=== PATIENT | female | born 1975 | race Caucasian/White ===

== ENCOUNTER 2017-03-19 05:06 | Inpatient (IN) | payer MEDICAID ==
[2017-03-19] MEDS: LACTATED RINGERS 1,000 ML IV SCH ×3 (05:50→08:36)
[2017-03-19] MEDS ORDERED: LACTATED RINGERS 1,000 ML ONE (05:59)
[2017-03-19 06:47] LABS: Hematocrit 30.9 % (30.3-42.9); Mean Corpuscular HGB Conc 32 % (30-34); Mean Corpuscular Volume 71 fl (79-97); Platelet Count 165 K/mm3 (140-440); Red Blood Count 4.36 M/mm3 (3.65-5.03); Red Cell Distribution Width 16.3 % (13.2-15.2); White Blood Count 7.4 K/mm3 (4.5-11.0)
[2017-03-19 06:50] LABS: Mean Corpuscular Hemoglobin 23 pg (28-32)
--- NOTE | 2017-03-19 07:27 | Anesthesia Consultation ---
Anesthesia Consult and Med Hx Date of service: 03/19/17 - Airway Anesthetic Teeth Evaluation: Good ROM Head & Neck: Adequate Mental/Hyoid Distance: Adequate Mallampati Class: Class II Intubation Access Assessment: Probably Good - Pulmonary Exam CTA: Yes - Cardiac Exam Cardiac Exam: RRR - Pre-Operative Health Status ASA Pre-Surgery Classification: ASA3 Proposed Anesthetic Plan: Epidural, Spinal - Pulmonary Hx Smoking: No Hx Asthma: No Hx Respiratory Symptoms: No SOB: No COPD: No Hx Pneumonia: No Hx Sleep Apnea: No - Cardiovascular System Hx Hypertension: No Hx Coronary Artery Disease: No Hx Heart Attack/AMI: No Hx Angina: No Hx Percutaneous Transluminal Coronary Angioplasty (PTCA): No Hx Cardia Arrhythmia: No Hx Pacemaker: No Hx Internal Defibrillator: No Hx Valvular Heart Disease: No Hx Heart Murmur: No Hx Peripheral Vascular Disease: No - Central Nervous System Hx Neuromuscular Disorder: No Hx Seizures: No CVA: No Hx Back Pain: No Hx Psychiatric Problems: No - Gastrointestinal Hx Ulcer: No Hx Gastroesophageal Reflux Disease: No - Endocrine Hx Renal Disease: No Hx End Stage Renal Disease: No Hx Liver Disease: No Hx Insulin Dependent Diabetes: Yes Hx Thyroid Disease: No Hx Hypothyroidism: No Hx Hyperthyroidism: No - Hematic Hx Anemia: No Hx Sickle Cell Disease: No - Other Systems Hx Alcohol Use: No Hx Substance Use: No Hx Cancer: No Hx Obesity: Yes - Additional Comments Anesthesia Medical History Comments: +IUP
[2017-03-19] MEDS ORDERED: D50W (25GM) IV ONE (07:30)
--- NOTE | 2017-03-19 07:31 | Anesthesia Day of Surgery ---
Anesthesia Day of Surgery - Day of Surgery Patient Examined: Yes Patient H&P Reviewed: Yes Patient is NPO: Yes
--- NOTE | 2017-03-19 07:36 | History and Physical Report ---
History of Present Illness Date of examination: 03/19/17 Date of admission: 03/19/17 05:06 Chief complaint: Scheduled c/s and salpingectomy History of present illness: This is a 41yo at 40 weks here for scheduled repeat c/s and salpingectomy. her course consist of transfer of care from another office at 36 weeks Type 2 diabetic AMA previous c/s x 3 labs O+ antibody neg H/H pap normal rubella IMM RPR neg HIV neg plt 240 chlam neg galo neg GBS neg Past History Past Medical History: diabetes (Diabetes type 2 ) Past Surgical History: section (csec 3) Family/Genetic History: diabetes, heart disease Social history: . denies: smoking, alcohol abuse, prescription drug abuse, IV drug use - Obstetrical History Expected Date of Delivery: 03/19/17 Actual Gestation: 40 Week(s) 0 Day(s) : 6 Para: 3 Hx # Term Pregnancies: 3 Number of Pregnancies: 0 Spontaneous Abortions: 0 Induced : 2 Number of Living Children: 3 Medications and Allergies Allergies Allergy/AdvReac Type Severity Reaction Status Date / Time No Known Allergies Allergy Verified 11/16/13 13:35 Home Medications Medication Instructions Recorded Confirmed Last Taken Type Insulin NPH, Human [NovoLIN N] 30 unit SUB-Q QAM 03/19/17 03/19/17 03/18/17 History Insulin NPH, Human [NovoLIN N] 30 unit SUB-Q QPM 03/19/17 03/19/17 03/18/17 History Insulin Regular, Human [HumuLIN R] 28 units SUB-Q DAILY 03/19/17 03/19/17 History Insulin Regular, Human [HumuLIN R] 30 units SUB-Q QAM 03/19/17 03/19/17 History Active Meds: Active Medications Lactated Ringer's (Lactated Ringers) 1,000 mls @ 125 mls/hr IV DIRECT PHUONG Last Admin: 03/19/17 06:46 Dose: 999 mls/hr Review of Systems All systems: negative - Vital Signs Vital signs: Vital Signs Pulse Pulse Ox 75 97 03/19/17 06:10 03/19/17 06:10 Temp Pulse Resp BP Pulse Ox 98.0 F 80 18 111/66 98 03/19/17 06:24 05/30/17 07:13 03/19/17 06:24 03/19/17 06:29 03/19/17 07:13 - Physical Exam Breasts: Positive: deferred Cardiovascular: Regular rate, Normal S1 Lungs: Positive: Clear to auscultation, Normal air movement Abdomen: Positive: normal appearance, soft, normal bowel sounds. Negative: distention, tenderness, guarding Genitourinary (Female): Positive: normal external genitalia, normal perenium Vulva: both: normal Vagina: Positive: normal moisture Uterus: Positive: normal size, normal contour Anus/Rectum: Positive: normal perianal skin Extremities: Positive: normal Deep Tendon Reflex Grade: Normal +2 - Obstetrical FHR: category 1 Uterine Contraction Monitor Mode: External Cervical Dilatation: 0 Cervical Effacement Percentage: 0 Uterine Contraction Pattern: Irregular Uterine Tone Measurement Phase: Resting Results Result Diagrams: 03/19/17 05:40 Abnormal lab results 03/19/17 03/19/17 Range/Units 05:40 06:52 Hgb 10.0 L (10.1-14.3) gm/dl MCV 71 L (79-97) fl MCH 23 L (28-32) pg RDW 16.3 H (13.2-15.2) % POC Glucose 59 L (70-105) All other labs normal. Assessment and Plan A/P scheduled repeat c/s repeat ivf insulin by protocol d/w patient r/b/a of surgery which include bleeding infection damage to pelvic and non pelvic organs risk of hysterectomy and patient agrees with plan
[2017-03-19] MEDS ORDERED: NARCAN 0.4 MG/1 ML IV PRN ×3 (08:00→11:57)
[2017-03-19] MEDS ORDERED: PITOCin/NS 20 UNIT/1000ML DRIP 20 UNITS/1,000 ML BAG IV SCH ×2 (08:00→12:00)
[2017-03-19] MEDS ORDERED: REGLAN IV NR (08:00)
[2017-03-19] MEDS ORDERED: BICITRA PO NR (08:00)
[2017-03-19] MEDS ORDERED: ANCEF/STERILE WATER 2 GM/20 ML 2 GM/20 ML SYRINGE IV NR (08:00)
[2017-03-19] MEDS ORDERED: PEPCID IV NR (08:00)
[2017-03-19] MEDS ORDERED: LACTATED RINGERS 1,000 ML IV SCH (08:00)
[2017-03-19] MEDS ORDERED: ZOFRAN IV PRN ×2 (08:00→11:57)
[2017-03-19] MEDS ORDERED: BENADRYL IV PRN (08:00)
[2017-03-19] MEDS ORDERED: SODIUM CHLORIDE FLUSH SYRINGE 10 ML IV PRN (08:00)
[2017-03-19] MEDS ORDERED: fentaNYL-BUPIV 2 MCG/ML-0.125% 100 ML EPIDURAL SCH (08:00)
[2017-03-19] MEDS ORDERED: MORPHINE IV PRN ×4 (08:00→11:57)
[2017-03-19] MEDS ORDERED: MORPHINE ONE (08:47)
[2017-03-19] MEDS ORDERED: WATER FOR IRRIG STERILE IR ONE (09:00)
[2017-03-19] MEDS ORDERED: NACL 0.9% IR ONE (09:00)
[2017-03-19] MEDS ORDERED: ANCEF/STERILE WATER 2 GM/20 ML IV ONE (09:02)
[2017-03-19] MEDS ORDERED: ePHEDrine SULFATE ONE (09:05)
[2017-03-19] MEDS ORDERED: ZOFRAN ONE (09:52)
[2017-03-19] MEDS ORDERED: NACL 0.9% 500 ML 500 ML IV NR (10:30)
[2017-03-19] MEDS ORDERED: D50W (25GM) IV PRN (10:30)
[2017-03-19] MEDS ORDERED: DILAUDID ONE (10:40)
[2017-03-19] MEDS ORDERED: NACL 0.9% 1000 ML 1,000 ML ONE (10:43)
[2017-03-19] MEDS ORDERED: SUBLIMAZE ONE (10:47)
--- NOTE | 2017-03-19 11:44 | Procedure Note ---
OB Delivery Note - Delivery Date of Delivery: 03/19/17 Surgeon: YANET GONZALEZ Awake Overnight Monitor: MINGO JUNIOR Estimated blood loss: other (1300) - Section Preop diagnosis: repeat Postop diagnosis: other (dense adhesions) section procedure: repeat low transverse, other (lysisi of adhesions) Disposition: PACU Complications: transfusion Narrative: see op report - A at 1 minute: 8 at 5 minutes: 9 Gender: Male (weight 8 pounds 4 oz)
[2017-03-19] MEDS ORDERED: SENOKOT PO PRN (11:57)
[2017-03-19] MEDS ORDERED: MYLICON PO PRN (11:57)
[2017-03-19] MEDS ORDERED: PHENERGAN PR PRN (11:57)
[2017-03-19] MEDS ORDERED: MILK OF MAGNESIA PO PRN (11:57)
[2017-03-19] MEDS ORDERED: LANSINOH TP PRN (11:57)
[2017-03-19] MEDS ORDERED: TUCKS PAD TP PRN (11:57)
[2017-03-19] MEDS ORDERED: TYLENOL PO PRN (11:57)
[2017-03-19] MEDS ORDERED: ANUCORT-HC PR PRN (11:57)
[2017-03-19] MEDS ORDERED: TORADOL IV PRN ×2 (11:57)
--- NOTE | 2017-03-19 11:57 | Operative Report ---
Operative Report Operative Report: DATE OF PROCEDURE:03/19/17 PRE-PROCEDURE DIAGNOSIS: A 41-year-old 6, para 3023 with history of previous section here for repeat x 4 POST-PROCEDURE DIAGNOSIS: A 41 -year-old 6, para 3023 with history of previous section, dense adhesions PROCEDURE PERFORMED: section and lysis of adhesions SURGEON: Denisse Burks MD Practicing Urologist: Shadia Dorado ANESTHESIA: Spinal ESTIMATED BLOOD LOSS: 1300cc FINDINGS: Female born weighing 8 pounds 2 oz with Apgars of 8 and 9. DESCRIPTION OF PROCEDURE: The patient was taken to the operating room and given spinal anesthesia, and anesthesia was found to be adequate. The patient was prepped and draped in the usual sterile fashion. An incision was made over the previous scar . A Bovie was used to transect the subcutaneous tissue to the fascia, which was dissected laterally with curved Turner scissors. The Hari clamps were used to grasp the superior and inferior portions of the fascial incisions and subsequently dissected off with a Bovie and bluntly. The rectus abdominal muscles were divided in the midline. Multiple adhesions were palpated and transected from anterior uterus. The Anthony O retractor was placed in the incision. The vesicouterine peritoneum was identified, transected, creating the bladder flap. A scalpel was used to make a transverse incision in the low uterine segment bleeding commneced from anterior placenta and i was able to rapidly proceed grab baby head. The head was delivered atraumatically. Mouth and nares were suctioned at the incision. The posterior shoulder was delivered followed by the anterior shoulder and entire body. The cord was clamped twice and cut in between. The was handed off to the awaiting validation manager. The placental delivery was spontaneously intact 3-vessel cord.but very ragged. Twenty units of Pitocin in 1 liter of LR was given after placental delivery. The hysterotomy was repaired with 0 vicryl in a running locked fashion. Hemostasis was assured. multiple stiches of figure 8 for defect of denuded anterior uterus. I placed tessel and surgicel for excellent hemostasis and pressure. The pelvis was copiously irrigated with warm normal saline. Interceed was placed on the hysterotomy repair. The rectus abdominal muscles were evaluated and surgicell placed. The fascia was reapproximated with 0 Vicryl in a running fashion. The skin was closed with imani. The patient tolerated the procedure and was taken to the recovery room in stable condition.
[2017-03-19] MEDS ORDERED: FEOSOL PO SCH (12:00)
[2017-03-19] MEDS ORDERED: SODIUM CHLORIDE FLUSH SYRINGE 10 ML IV NR (12:00)
[2017-03-19] MEDS ORDERED: TORADOL IV SCH (12:00)
[2017-03-19] MEDS ORDERED: D5/0.45NS 1,000 ML IV SCH (13:30)
[2017-03-19] MEDS: NORCO 5/325 PO PRN (21:47)
[2017-03-20 00:02] LABS: Basophils % (Auto) 0.2 % (0.0-1.8); Eosinophils % (Auto) 0.3 % (0.0-4.3); Hematocrit 30.4 % (30.3-42.9); Hemoglobin 9.9 gm/dl (10.1-14.3); Mean Corpuscular HGB Conc 33 % (30-34); Mean Corpuscular Volume 75 fl (79-97); Platelet Count 136 K/mm3 (140-440); Red Blood Count 4.03 M/mm3 (3.65-5.03); Red Cell Distribution Width 19.6 % (13.2-15.2); White Blood Count 8.8 K/mm3 (4.5-11.0)
[2017-03-20 00:10] LABS: Mean Corpuscular Hemoglobin 25 pg (28-32)
[2017-03-20] MEDS: NORCO 5/325 PO PRN ×2 (04:55→21:08)
[2017-03-20] MEDS ORDERED: BOOSTRIX IM ONE (06:00)
[2017-03-20] MEDS ORDERED: M-M-R II VACCINE SUB-Q ONE (06:00)
[2017-03-20 08:23] LABS: Hematocrit 33.5 % (30.3-42.9); Hemoglobin 10.7 gm/dl (10.1-14.3)
--- NOTE | 2017-03-20 08:26 | Progress Note ---
Assessment and Plan O: VSS AF PP H/H: 9.9/30.4 A: Stable POD #1 Anemia P Iron Binder Routine PP orders Subjective - Subjective Date of service: 03/20/17 Patient reports: appetite normal, voiding normally, pain well controlled, flatus , ambulating normally : doing well Objective - Vital Signs Latest vital signs: Vital Signs Temp Pulse Pulse Resp BP BP Pulse Ox 03/20/17 08:08 98.4 F 72 18 96/60 03/20/17 04:55 18 03/20/17 04:50 98.4 F 85 18 115/69 03/20/17 00:48 98.5 F 81 20 106/60 03/19/17 21:47 16 03/19/17 21:35 98.6 F 82 16 103/57 03/19/17 18:05 98.7 F 74 20 94/55 03/19/17 17:45 98.6 F 76 20 95/55 03/19/17 17:15 98.7 F 65 20 96/53 03/19/17 16:45 98.6 F 73 20 94/46 03/19/17 16:15 98.7 F 73 20 102/57 03/19/17 15:55 98.7 F 78 20 92/48 03/19/17 15:25 20 03/19/17 14:05 98.1 F 76 18 105/80 03/19/17 13:30 97.7 F 92 H 13 104/65 95 03/19/17 13:00 97.9 F 85 15 116/48 97 03/19/17 12:45 97.9 F 75 11 L 108/60 97 03/19/17 12:30 97.9 F 76 12 96/57 98 03/19/17 12:15 97.7 F 74 10 L 100/55 97 Intake and Output 03/19/17 03/20/17 03/20/17 22:59 06:59 14:59 Intake Total 500 360 Output Total 225 780 Balance 275 -420 Intake: Oral 120 Intake, Free Water 240 Blood Product 500 Leukoreduced Red Blood 250 Cells Unit [id number] Leukoreduced Red Blood 250 Cells Unit [id number] Output: Urine 225 780 Indwelling Catheter 780 Other: Total, Intake Amount 120 Total, Output Amount 400 Voiding Method Indwelling Catheter Indwelling Catheter # Voids Void 1 Weight 0 g - Exam Breasts: Present: deferred Lungs: Present: Normal air movement Abdomen: Present: normal appearance, soft. Absent: distention Vulva: both: normal Uterus: Present: normal, firm, fundal height below umbilicus. Absent: bogginess Extremities: Present: normal. Absent: edema - Labs Labs: Abnormal lab results 03/19/17 03/19/17 Range/Units 05:40 23:14 Hgb 9.9 L (10.1-14.3) gm/dl MCV 75 L D (79-97) fl MCH 25 L (28-32) pg RDW 19.6 H (13.2-15.2) % Plt Count 136 L (140-440) K/mm3 Lymph % (Auto) 10.5 L (13.4-35.0) % Lymph # 0.9 L (1.2-5.4) K/mm3 Seg Neutrophils % 84.7 H (40.0-70.0) % Crossmatch See Detail
[2017-03-20] MEDS: FEOSOL PO SCH ×2 (09:59→21:08)
--- NOTE | 2017-03-20 15:09 | Progress Note ---
Subjective Date of service: 03/20/17 Interval history: 1st POD after Patient is in the room, comfortable. Pain is mostly controlled with pain meds. Ambulated well. No residual neurological deficit. No pruritus. No anesthesia complications Objective - Constitutional Vitals: Vital Signs - 12hr 03/20/17 03/20/17 03/20/17 04:50 04:55 08:08 Temperature 98.4 F 98.4 F Pulse Rate [ 85 72 Right Radial] Respiratory 18 18 18 Rate Blood Pressure 115/69 96/60 [Right Arm] 03/20/17 13:16 Temperature 97.9 F Pulse Rate [ 85 Right Radial] Respiratory 18 Rate Blood Pressure 100/53 [Right Arm] - Labs CBC & Chem 7: 03/20/17 06:55 Labs: Abnormal lab results 03/19/17 03/19/17 Range/Units 05:40 23:14 Hgb 9.9 L (10.1-14.3) gm/dl MCV 75 L D (79-97) fl MCH 25 L (28-32) pg RDW 19.6 H (13.2-15.2) % Plt Count 136 L (140-440) K/mm3 Lymph % (Auto) 10.5 L (13.4-35.0) % Lymph # 0.9 L (1.2-5.4) K/mm3 Seg Neutrophils % 84.7 H (40.0-70.0) % Crossmatch See Detail
[2017-03-20] MEDS: PERCOCET 5/325 PO PRN (16:45)
[2017-03-20] MEDS: MOTRIN PO PRN (16:52)
[2017-03-20] MEDS ORDERED: D50W (25GM) IV PRN (19:21)
[2017-03-21] MEDS: NORCO 5/325 PO PRN ×2 (05:11→21:44)
--- NOTE | 2017-03-21 08:29 | Progress Note ---
Assessment and Plan O: vss af Pp h/h: A:Stable POD #2 p: continue Pp orders Subjective - Subjective Date of service: 03/21/17 Patient reports: appetite normal, voiding normally, pain well controlled, ambulating normally [place]: doing well, nursing well, bottle feeding Objective - Vital Signs Latest vital signs: Vital Signs Temp Pulse Resp BP 03/21/17 05:11 18 03/21/17 01:22 98.5 F 84 18 102/62 03/20/17 21:08 18 03/20/17 16:31 98.4 F 68 16 98/52 03/20/17 13:16 97.9 F 85 18 100/53 Intake and Output 03/20/17 03/21/17 03/21/17 22:59 06:59 14:59 Intake Total 720 360 Balance 720 360 Intake: Oral 720 Intake, Free Water 360 Other: Total, Intake Amount 720 # Voids Void 1 2 - Exam Lungs: Present: Normal air movement Abdomen: Present: normal appearance, soft Uterus: Present: normal, firm, fundal height below umbilicus Extremities: Present: normal Incision: Present: normal, dry, intact - Labs Labs: Abnormal lab results 03/20/17 03/21/17 Range/Units 19:35 07:04 POC Glucose 138 H 117 H (70-105)
[2017-03-21] MEDS: FEOSOL PO SCH ×2 (10:41→21:44)
[2017-03-21] MEDS: PERCOCET 5/325 PO PRN (12:25)
[2017-03-21] MEDS: MOTRIN PO PRN ×2 (12:25→21:45)
[2017-03-22] MEDS: FEOSOL PO SCH (09:48)
[2017-03-22] MEDS: PERCOCET 5/325 PO PRN (09:48)
--- NOTE | 2017-03-22 10:41 | Progress Note ---
Assessment and Plan A/P POD#3 s/p c/s and salpingectomy VSS bonding with baby VSS rh+ no rhogam indicated h/h 10-9.9 on iron pain controlled ambulating well continue insulin regimen meets d/c parameters f/u in 1 weeks for incision check, remove imani patient will make appt with primary care in regards to insulin . patient states that she is well versed in diabetes had for 1-2 years. understands if glucose low will maintain regimen prior to was able to converstae via sandhya Nurse in clinic will f/u in clinic on saturday at 11 with [facility] Subjective - Subjective Date of service: 03/22/17 Principal diagnosis: repeat c/s and b/l salpingectomy Interval history: This is a 41yo at 40 weks here for scheduled repeat c/s and salpingectomy. her course consist of transfer of care from another office at 36 weeks Type 2 diabetic AMA previous c/s x 3 labs O+ antibody neg H/H pap normal rubella IMM RPR neg HIV neg plt 240 chlam neg galo neg GBS neg Patient reports: appetite normal, voiding normally, pain well controlled, flatus , ambulating normally : doing well Objective - Vital Signs Latest vital signs: Vital Signs Temp Pulse Pulse Resp BP BP 03/22/17 08:10 98.4 F 76 18 104/66 03/22/17 00:00 98.4 F 77 20 96/62 03/21/17 21:45 16 03/21/17 21:44 16 03/21/17 17:25 98.1 F 79 18 97/61 Intake and Output 03/21/17 03/22/17 03/22/17 22:59 06:59 14:59 Intake Total 720 120 120 Balance 720 120 120 Intake: Oral 720 120 120 Other: Total, Intake Amount 240 120 120 # Voids Void 1 1 1 - Exam Breasts: Present: normal Cardiovascular: Present: Regular rate, Normal S1, Normal S2 Lungs: Present: Clear to auscultation, Normal air movement Abdomen: Present: normal appearance, soft, normal bowel sounds. Absent: distention, tenderness Vulva: both: normal Uterus: Present: normal, firm, fundal height below umbilicus (3cm below ). Absent: bogginess, tenderness Extremities: Present: normal Deep Tendon Reflex Grade: Normal +2 Incision: Present: normal, dry, intact - Labs Labs: Abnormal lab results 03/21/17 03/21/17 03/21/17 Range/Units 11:16 17:21 22:00 POC Glucose 126 H < 40 L 149 H (70-105) 03/22/17 03/22/17 Range/Units 01:42 07:16 POC Glucose < 40 L 114 H (70-105)
--- NOTE | 2017-03-22 10:44 | Discharge Summary ---
Providers - Providers Date of Admission: 03/19/17 05:06 Date of discharge: 03/22/17 Attending physician: YANET GONZALEZ MD Primary care physician: YANET GONZALEZ MD Hospitalization Reason for admission: section Delivery: Procedure: repeat low transverse Episiotomy: none Laceration: none Incision: normal, dry, intact, other (imani intact) Other procedures: none complications: none Discharge diagnosis: IUP at term delivered [place] baby: male Condition at discharge: Good Disposition: DISCHARGED TO HOME OR SELFCARE Plan - Discharge Medications Prescriptions: Ferrous Sulfate [Feosol 325 MG tab] 325 mg PO BID #30 tablet Ibuprofen [Motrin] 600 mg PO Q8H PRN #30 tablet PRN Reason: Pain oxyCODONE /ACETAMINOPHEN [Percocet 5/325] 1 tab PO Q6HR PRN #30 tablet PRN Reason: Pain - Provider Discharge Summary Activity: routine, no sex for 6 weeks Diet: routine Instructions: routine Additional instructions: [] Smoking cessation referral if applicable(refer to patient education folder for contact #) [] Refer to [facility] Booklet Call your doctor immediately for: * Fever > 100.5 * Heavy vaginal bleeding ( >1 pad per hour) * Severe persistent headache * Shortness of breath * Reddened, hot, painful area to leg or breast * Drainage or odor from incision. * Keep incision clean and dry at all times and follow doctor's instructions regarding bathing/showering - Follow up plan Follow up: YANET GONZALEZ MD [Primary Care Provider] - 3 Days
[2017-03-22 19:03] VITALS: BP 113/67
== END 2017-03-22 17:30 | disposition home or self-care (01) | DRG 766 ==
LOC: APU 05:06 → OB 14:11
PROVIDERS: ADMIT Obstetrics & Gynecology; ATTEND Obstetrics & Gynecology
PROC: 10D00Z1 Extraction of Products of Conception, Low, Open Approach (ICD-10-PCS; principal; 2017-03-19)
PROC: 0UN90ZZ Release Uterus, Open Approach (ICD-10-PCS; 2017-03-19)
PROC: 30233N1 Transfusion of Nonautologous Red Blood Cells into Peripheral Vein, Percutaneous Approach (ICD-10-PCS; 2017-03-19)
DX: O99.214 Obesity complicating childbirth (principal); O24.119 Pre-existing type 2 diabetes mellitus, in pregnancy, unspecified trimester; E11.9 Type 2 diabetes mellitus without complications; O34.211 Maternal care for low transverse scar from previous cesarean delivery; O99.03 Anemia complicating the puerperium; N73.6 Female pelvic peritoneal adhesions (postinfective); Z37.0 Single live birth; Z3A.40 40 weeks gestation of pregnancy; O09.523 Supervision of elderly multigravida, third trimester; Z83.3 Family history of diabetes mellitus; Z82.49 Family history of ischemic heart disease and other diseases of the circulatory system
CPT/HCPCS: 36415; 82947; 82962; 85014; 85018; 85025; 85027; 86850; 86900; 86901; 86920; 88307; 90715; 99211; C9250; G0463; J0690; J1170; J1815; J1885; J2270; J2405; J2590; J2765; J3010; J7030; J7040; J7120; P9016

== ENCOUNTER 2017-05-23 02:58 | Emergency (ER) | payer SELFPAY ==
[2017-05-23 05:22] LABS: Bilirubin,Urine NEG (Negative); Blood,Urine SM (Negative); Ketones,Urine NEG (Negative); Leukocyte Esterase,Urine LG (Negative); Mucus,Urine FEW /HPF; Nitrite,Urine NEG (Negative); Protein,Urine <15 mg/dL mg/dL (Negative); Urobilinogen,Urine < 2.0 mg/dL (<2.0)
--- NOTE | 2017-05-23 05:22 | Emergency Department Report ---
HPI - General Chief Complaint: Fever Time Seen by Provider: 05/23/17 05:07 - HPI HPI: Patient is a 41-year-old female with some Upper Sorbian but which mostly Polish presents to the ED with her significant other complaining of fever and left- sided flank pain 1 day. 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 She admits low- grade fever She states she has some burning type pain when she urinates. She denies nausea vomiting and abdominal pain chest pain shortness of breath ED Past Medical Hx - Past Medical History Previous Medical History?: Yes Hx Hypertension: No Hx Heart Attack/AMI: No Hx Congestive Heart Failure: No Hx Diabetes: Yes (2013) Hx Deep Vein Thrombosis: No Hx GERD: No Hx Liver Disease: No Hx Renal Disease: No Hx Sickle Cell Disease: No Hx Headaches / Migraines: No Hx Seizures: No Hx Asthma: No Hx COPD: No Hx HIV: No Additional medical history: induced DM - Surgical History Past Surgical History?: Yes Hx Coronary Stent: No Hx Open Heart Surgery: No Hx Pacemaker: No Hx Internal Defibrillator: No Hx Cholecystectomy: No Hx Appendectomy: No Hx Breast Surgery: No Additional Surgical History: c sections X4 - Social History Smoking Status: Never Smoker Substance Use Type: None - Medications Home Medications: Home Medications Medication Instructions Recorded Confirmed Last Taken Type Insulin NPH, Human [NovoLIN N] 30 unit SUB-Q QAM 03/19/17 03/19/17 03/18/17 History Insulin NPH, Human [NovoLIN N] 30 unit SUB-Q QPM 03/19/17 03/19/17 03/18/17 History Insulin Regular, Human [HumuLIN R] 28 units SUB-Q DAILY 03/19/17 03/19/17 History Insulin Regular, Human [HumuLIN R] 30 units SUB-Q QAM 03/19/17 03/19/17 History Ferrous Sulfate [Feosol 325 MG tab] 325 mg PO BID #30 tablet 03/21/17 Unknown Rx oxyCODONE /ACETAMINOPHEN [Percocet 1 tab PO Q6HR PRN #30 tablet 03/21/17 Unknown Rx 5/325] Fluconazole [Diflucan TAB] 200 mg PO QDAY #1 tablet 05/23/17 Unknown Rx Ibuprofen [Motrin 600 MG tab] 600 mg PO Q8H PRN #30 tablet 05/23/17 Unknown Rx Sulfamethoxazole/Trimethoprim 1 tab PO BID #14 tab 05/23/17 Unknown Rx [Bactrim 400-80 mg] ED Review of Systems ROS: Stated complaint: FLU SYMPTOMS Other details as noted in HPI Constitutional: denies: chills, fever Eyes: denies: eye pain, eye discharge, vision change ENT: denies: ear pain, throat pain Respiratory: denies: cough, shortness of breath, wheezing Cardiovascular: denies: chest pain, palpitations Endocrine: no symptoms reported Gastrointestinal: denies: abdominal pain, nausea, diarrhea Genitourinary: denies: urgency, dysuria, discharge Musculoskeletal: denies: back pain, joint swelling, arthralgia Skin: denies: rash, lesions Neurological: denies: headache, weakness, paresthesias Psychiatric: denies: anxiety, depression Hematological/Lymphatic: denies: easy bleeding, easy bruising Physical Exam - Physical Exam Vital Signs: Vital Signs 05/23/17 03:21 Temperature 100.7 F H Pulse Rate 107 H Respiratory 18 Rate Blood Pressure 103/66 O2 Sat by Pulse 98 Oximetry Physical Exam: GENERAL: Alert and oriented x3, no apparent distress, Normal Gait, atraumatic. HEAD: Head is normocephalic and a-traumatic. EYES: Extra ocular muscles are intact. Pupils are equal, round, and reactive to light and accommodation. EARS: symetrical, atraumatic, non tender, ear canal clear and moderate cerumen, tympanic membrance non inflamed. gross auditory nml bilaterally. NOSE: Nose symetrical, Nontender,Nares appeared normal. MOUTH:Mouth is well hydrated and without lesions. Tonsils nonerythematous or swollen, Uvula midline, Tongue not elevated. Mucous membranes are moist. Posterior pharynx clear, no exudate or lesions. Patent airways. NECK: Supple. Non edematous, No lymphadenopathy or thyromegaly. No C-spine tenderness LUNGS: Symetrical with respiration, No wheezing, no rales or crackles, CTAB. HEART: S1, S2 present, regular rate and rhythm without murmur, no rubs, no gallops. Non tender to palpation ABDOMEN: No organomegaly was noted,Positive bowel sounds, soft, and non- distended. . Nontender to palpation on all Quadrants, NO CVA tenderness. NEUROLOGIC: The patient is cooperative with no focal neurologic deficits. Cranial nerves II through XII are grossly intact. Normal speech. PSYCHIATRIC: Mood is congruent with affect, denies suicidal or homicidal ideations. SKIN: Warm and dry, No lesions, No ulceration or induration present. ED Course Vital Signs 05/23/17 03:21 Temperature 100.7 F H Pulse Rate 107 H Respiratory 18 Rate Blood Pressure 103/66 O2 Sat by Pulse 98 Oximetry ED Medical Decision Making - Medical Decision Making 41-year-old female presents with urinary tract infection rosey infection ED course: Urinalysis, urine test, chlamydia and gonorrhea cultures sent Urinalysis is positive for elevated white blood cells, large leukocyte esterase and biting Suggestive of rosey vaginitis infection. Patient denies any vaginal discharge Cannot rule out STDs so we will treat with Rocephin in the ED and send her home on Flagyl, Diflucan, Discussed patient to follow-up with [employer]BI[employer] TECHNICIAN as referred. Discussed follow-up with primary care physician as well vital signs are normal , she is in no acute distress fever responsive to Motrin Critical care attestation.: If time is entered above; I have spent that time in minutes in the direct care of this critically ill patient, excluding procedure time. ED Disposition Clinical Impression: Rosey cystitis UTI (urinary tract infection) Qualifiers: Urinary tract infection type: acute cystitis Hematuria presence: without hematuria Qualified Code(s): N30.00 - Acute cystitis without hematuria Disposition: TO HOME OR SELFCARE Is pt being admited?: No Does the pt Need Aspirin: No Condition: Stable Instructions: Urinary Tract Infection in Women (ED), Vulvovaginal Candidiasis ( ED), Flank Pain (ED) Additional Instructions: Follow-up with her [employer]BILE [employer]ICE [employer] TECHNICIAN doctor as referred. Particular medication as prescribed If symptoms worsen return to ED Prescriptions: Fluconazole [Diflucan TAB] 200 mg PO QDAY #1 tablet Ibuprofen [Motrin 600 MG tab] 600 mg PO Q8H PRN #30 tablet PRN Reason: Pain Sulfamethoxazole/Trimethoprim [Bactrim 400-80 mg] 1 tab PO BID #14 tab Referrals: BRAYDEN SWARTZ MD [Primary Care Provider] - 3-5 Days JUSTIN APONTE MD [Referring] - 3-5 Days [facility] [Outside] - 3-5 Days [facility] [Outside] - 3-5 Days Forms: Accompanied Note, Work/School Release Form(ED) Time of Disposition: 06:08 Print Language: ARABIC
[2017-05-23 05:24] LABS: WBC,Urine > 182.0 /HPF (0.0-6.0)
[2017-05-23] MEDS ORDERED: MOTRIN PO ONE (05:59)
[2017-05-23] MEDS ORDERED: BACTRIM DS PO ONE (05:59)
[2017-05-23] MEDS ORDERED: XYLOCAINE 1% MPF 5 mL INFILTRATI ONE (06:03)
[2017-05-23] MEDS ORDERED: ROCEPHIN IM ONE (06:03)
[2017-05-23] MEDS ORDERED: ZITHROMAX PO ONE (06:12)
[2017-05-23 07:28] VITALS: BP 86/55
== END 2017-05-23 07:43 | disposition home or self-care (01) ==
LOC: ED 02:58
DX: N39.0 Urinary tract infection, site not specified (principal); E11.9 Type 2 diabetes mellitus without complications; Z79.4 Long term (current) use of insulin
CPT/HCPCS: 81001; 81025; 96372; 99283; J0696

== ENCOUNTER 2017-11-02 22:04 | Emergency (ER) | payer SELFPAY ==
--- NOTE | 2017-11-03 00:46 | Emergency Department Report ---
HPI - General Chief Complaint: Dental/Oral Time Seen by Provider: 11/02/17 23:34 - HPI HPI: Patient reports toothache to the right lower bottom tooth at the back. Pain for 2 days is worsening. She does not have a dentist. Pain is 10 out of 10 and achy throbbing. Denies any fevers chills. Denies any cough, shortness of breath or chest pain. Denies any sore throat. Denies any difficulty swallowing. Denies any sinus congestion or drainage. Denies any headache. Patient states that she took Tylenol but it didn't help. Pain worse with eating and an open not better with Tylenol ED Past Medical Hx - Past Medical History Previous Medical History?: Yes Hx Hypertension: No Hx Heart Attack/AMI: No Hx Congestive Heart Failure: No Hx Diabetes: Yes (2013) Hx Deep Vein Thrombosis: No Hx GERD: No Hx Liver Disease: No Hx Renal Disease: No Hx Sickle Cell Disease: No Hx Headaches / Migraines: No Hx Seizures: No Hx Asthma: No Hx COPD: No Hx HIV: No Additional medical history: induced DM - Surgical History Hx Coronary Stent: No Hx Open Heart Surgery: No Hx Pacemaker: No Hx Internal Defibrillator: No Hx Cholecystectomy: No Hx Appendectomy: No Hx Breast Surgery: No Additional Surgical History: c sections X4 - Family History Family history: diabetes, hypertension - Social History Smoking Status: Never Smoker Substance Use Type: None - Medications Home Medications: Home Medications Medication Instructions Recorded Confirmed Last Taken Type Insulin NPH, Human [NovoLIN N] 30 unit SUB-Q QAM 03/19/17 03/19/17 03/18/17 History Insulin NPH, Human [NovoLIN N] 30 unit SUB-Q QPM 03/19/17 03/19/17 03/18/17 History Insulin Regular, Human [HumuLIN R] 28 units SUB-Q DAILY 03/19/17 03/19/17 History Insulin Regular, Human [HumuLIN R] 30 units SUB-Q QAM 03/19/17 03/19/17 History Ferrous Sulfate [Feosol 325 MG tab] 325 mg PO BID #30 tablet 03/21/17 Unknown Rx oxyCODONE /ACETAMINOPHEN [Percocet 1 tab PO Q6HR PRN #30 tablet 03/21/17 Unknown Rx 5/325] Fluconazole [Diflucan TAB] 200 mg PO QDAY #1 tablet 05/23/17 Unknown Rx Sulfamethoxazole/Trimethoprim 1 tab PO BID #14 tab 05/23/17 Unknown Rx [Bactrim 400-80 mg] Acetaminophen/Codeine [Tylenol 1 tab PO Q6H PRN 4 Days #16 tab 11/03/17 Unknown Rx /Codeine # 3 tab] Ibuprofen [Motrin 600 MG tab] 600 mg PO Q8H PRN 5 Days #15 tablet 11/03/17 Unknown Rx Penicillin V Potassium 500 mg PO Q8H 10 Days #30 tablet 11/03/17 Unknown Rx ED Review of Systems ROS: Stated complaint: TOOTHACHE Other details as noted in HPI Comment: All other systems reviewed and negative Constitutional: no symptoms reported Eyes: denies: eye pain, eye discharge ENT: dental pain. denies: ear pain, throat pain, congestion Respiratory: no symptoms reported Cardiovascular: denies: chest pain, palpitations, edema, syncope Gastrointestinal: denies: abdominal pain, nausea, vomiting, diarrhea Genitourinary: denies: urgency, dysuria, frequency, hematuria, discharge Musculoskeletal: denies: back pain, joint swelling, arthralgia, myalgia Skin: denies: rash Neurological: denies: headache Physical Exam - Physical Exam Vital Signs: Vital Signs 11/02/17 22:32 Temperature 98.8 F Pulse Rate 69 Respiratory 16 Rate Blood Pressure 96/64 O2 Sat by Pulse 98 Oximetry Vital Signs 11/02/17 11/03/17 11/03/17 22:32 01:17 02:24 Temperature 98.8 F Pulse Rate 69 Respiratory 16 18 Rate Blood Pressure 96/64 Blood Pressure 108/72 [Left] O2 Sat by Pulse 98 Oximetry General: This is a 42-year-old female well-nourished well-developed in no acute distress. Physical Exam: Head: Normocephalic atraumatic Ears:BIateral TM pearly thorne.Bret EAC with normal exam. No mastoid bone tenderness. Mouth: Moist, no pharyngeal erythema or exudate . No tonsillar erythema or exudate. UVULA midline and oral airways patent. No peritonsillar abscess. Tooth #32 with dental Caries and and erosion of enamel. Patient also has multiple other dental caries with mild gingivitis. No facial swelling noted. No erythema or indurated area/tenderness around teeth. Neck: Nontender to palpate, supple, normal range of motion. No adenopathy. No c- spine tenderness. Nose: Bilateral nasal normal mucosa. Maxillary and frontal sinuses non-tender to palpate. EXT: No clubbing, cyanosis or edema. +2 pulses in all extremities and no neurovascular compromise Eyes: Sclerae and conjunctiva without injection. Bilateral pupils equal and reactive to light. Bilateral lids are normal. Normal accommodation.BEOMI Lungs: Clear to auscultate bilaterally, no rhonchi wheezes or rales. Normal work of breathing and no chest wall tenderness CV: S1, S2. Regular rate and rhythm negative murmur. Capillary refill is less than 3 seconds Skin: Clean dry and intact, no rashes or lesions Psych: Normal mood and behavior ED Course Vital Signs 11/02/17 22:32 Temperature 98.8 F Pulse Rate 69 Respiratory 16 Rate Blood Pressure 96/64 O2 Sat by Pulse 98 Oximetry - Reevaluation(s) Reevaluation #1: 11/03/17 02:34 Patient given [place] 5/325 2 tablets by mouth in emergency room for toothache which relieved her pain. ED Medical Decision Making - Medical Decision Making ED course: She here complaining of toothache 2 days. She was found to have dental decay, gingivitis and partial loss of enamel at tooth #32. No dental abscess or cellulitis seen. Patient doesn't have a dentist and I discussed with her that I can treat her pain and put her on antibiotic but she'll need to follow up with a dentist for evaluation of treatment of underlying cause of toothache. She was understanding and patient was given [place] 5/325 2 tablets by mouth in emergency room for pain which relieved her pain. Discharged home with family prescription for Tylenol 3, Motrin and penicillin VK. I discussed with her she needs to follow up with jovany Cooper until clinic to call in to sit a scheduled appointment. Critical care attestation.: If time is entered above; I have spent that time in minutes in the direct care of this critically ill patient, excluding procedure time. ED Disposition Clinical Impression: Gingivitis, Tooth ache, Dental caries Disposition: -01 TO HOME OR SELFCARE Is pt being admited?: No Does the pt Need Aspirin: No Condition: Stable Instructions: Dental Caries (ED), Toothache (ED), Gingivitis (ED) Additional Instructions: Please follow up with [facility] dental clinic for evaluation and treatment of tooth problem. Gargle with Listerine twice daily Take antibiotic as prescribed Please do not drive or operate heavy machinery while taking Tylenol No. 3 as this medication causes drowsiness Prescriptions: Acetaminophen/Codeine [Tylenol /Codeine # 3 tab] 1 tab PO Q6H PRN 4 Days #16 tab PRN Reason: Pain, Moderate (4-6) Ibuprofen [Motrin 600 MG tab] 600 mg PO Q8H PRN 5 Days #15 tablet PRN Reason: Pain Penicillin V Potassium 500 mg PO Q8H 10 Days #30 tablet Referrals: [facility] [Outside] - 2-3 Days Forms: Accompanied Note, Work/School Release Form(ED) Print Language: KAZAKH
[2017-11-03] MEDS ORDERED: NORCO 5/325 ONE (01:16)
[2017-11-03] MEDS ORDERED: NORCO 5/325 PO ONE (01:17)
[2017-11-03 02:25] VITALS: BP 108/72
== END 2017-11-03 02:48 | disposition home or self-care (01) ==
LOC: ED 22:04
DX: K08.89 Other specified disorders of teeth and supporting structures (principal)
CPT/HCPCS: 99282

== ENCOUNTER 2017-11-27 03:06 | Inpatient (IN) | payer SELFPAY ==
[2017-11-27] MEDS ORDERED: ZOFRAN IV ONE (03:25)
[2017-11-27] MEDS ORDERED: TYLENOL PO ONE (03:25)
[2017-11-27] MEDS ORDERED: NACL 0.9% 1000 ML 1,000 ML IV ONE ×4 (03:26→07:09)
[2017-11-27] MEDS ORDERED: TORADOL IV ONE (03:32)
[2017-11-27 04:02] LABS: Basophils % (Auto) 0.2 % (0.0-1.8); Eosinophils # (Auto) 0.1 K/mm3 (0.0-0.4); Eosinophils % (Auto) 0.9 % (0.0-4.3); Hematocrit 37.1 % (30.3-42.9); Hemoglobin 12.3 gm/dl (10.1-14.3); Lymphocytes # (Auto) 0.7 K/mm3 (1.2-5.4); Lymphocytes % (Auto) 8.7 % (13.4-35.0); Mean Corpuscular HGB Conc 33 % (30-34); Mean Corpuscular Volume 77 fl (79-97); Monocytes # (Auto) 0.5 K/mm3 (0.0-0.8); Monocytes % (Auto) 6.1 % (0.0-7.3); Platelet Count 204 K/mm3 (140-440); Red Blood Count 4.83 M/mm3 (3.65-5.03); Red Cell Distribution Width 14.6 % (13.2-15.2)
[2017-11-27 04:03] LABS: Mean Corpuscular Hemoglobin 25 pg (28-32)
[2017-11-27 04:24] LABS: BUN/Creatinine Ratio 15; Blood Urea Nitrogen 9 mg/dL (7-17); Calcium 8.4 mg/dL (8.4-10.2); Hemolysis Index 1
--- NOTE | 2017-11-27 04:37 | XRay Report ---
FINAL REPORT EXAM: XR CHEST ROUTINE 2V HISTORY: fever TECHNIQUE: PA and lateral views of the chest were submitted. FINDINGS: Heart size and mediastinum appear normal. The lungs are clear. Pleural fluid is not seen. The bones and soft tissues appear normal. IMPRESSION: Normal chest.
[2017-11-27 04:57] LABS: Bacteria,Urine 1+ /HPF (Negative); Bilirubin,Urine NEG (Negative); Blood,Urine SM (Negative); Color,Urine Yellow (Yellow); Mucus,Urine FEW /HPF; Nitrite,Urine NEG (Negative); Protein,Urine <15 mg/dL mg/dL (Negative); Urobilinogen,Urine < 2.0 mg/dL (<2.0)
[2017-11-27] MEDS ORDERED: ROCEPHIN/NS 1 GM/50 ML 1 GM/50 ML BAG IV ONE (05:29)
[2017-11-27] MEDS ORDERED: cefTRIAXone 1 GM in NACL 0.9% 20 ML IV ONE (05:30)
--- NOTE | 2017-11-27 07:12 | Emergency Department Report ---
HPI - General Chief Complaint: Fever Time Seen by Provider: 11/27/17 06:43 - HPI HPI: This is a 42-year-old female presents to the emergency department with complaint of chills and fever since yesterday afternoon. She denies any cough, nausea, vomiting, vaginal bleeding or discharge. She does complain of some dysuria. She has a past medical history of diabetes. No recent travel or sick contacts at home. She did not take anything for her symptoms prior to presentation. She did not check her temperature at home and presents with a low -grade fever of 99.8F here. No obvious aggravating or alleviating factors. ED Past Medical Hx - Past Medical History Hx Hypertension: No Hx Heart Attack/AMI: No Hx Congestive Heart Failure: No Hx Diabetes: Yes (2013) Hx Deep Vein Thrombosis: No Hx GERD: No Hx Liver Disease: No Hx Renal Disease: No Hx Sickle Cell Disease: No Hx Headaches / Migraines: No Hx Seizures: No Hx Asthma: No Hx COPD: No Hx HIV: No Additional medical history: induced DM - Surgical History Hx Coronary Stent: No Hx Open Heart Surgery: No Hx Pacemaker: No Hx Internal Defibrillator: No Hx Cholecystectomy: No Hx Appendectomy: No Hx Breast Surgery: No Additional Surgical History: c sections X4 - Social History Smoking Status: Never Smoker Substance Use Type: None - Medications Home Medications: Home Medications Medication Instructions Recorded Confirmed Last Taken Type Insulin NPH, Human [NovoLIN N] 30 unit SUB-Q BID 03/19/17 11/27/17 11/26/17 History Insulin Regular, Human [HumuLIN R] 28 units SUB-Q BID 03/19/17 11/27/17 History Ferrous Sulfate [Feosol 325 MG tab] 325 mg PO BID #30 tablet 03/21/17 11/27/17 11/26/17 Rx Acetaminophen/Codeine [Tylenol 1 tab PO Q6H PRN 4 Days #16 tab 11/03/17 Unknown Rx /Codeine # 3 tab] Ibuprofen [Motrin 600 MG tab] 600 mg PO Q8H PRN 5 Days #15 tablet 11/03/1711/2711/26/17 Rx ED Review of Systems ROS: Stated complaint: FEVER Other details as noted in HPI Comment: All other systems reviewed and negative Constitutional: chills, fever Eyes: denies: eye pain, eye discharge, vision change ENT: denies: ear pain, throat pain Respiratory: denies: cough, shortness of breath, wheezing Cardiovascular: denies: chest pain, palpitations Gastrointestinal: denies: abdominal pain, nausea, diarrhea Genitourinary: denies: urgency, dysuria, discharge Musculoskeletal: denies: back pain, joint swelling, arthralgia Skin: denies: rash, lesions Neurological: denies: headache, weakness, paresthesias Physical Exam - Physical Exam Vital Signs: Vital Signs 11/27/17 11/27/17 11/27/17 03:15 06:01 06:06 Temperature 99.8 F H Pulse Rate 131 H 92 H Respiratory 16 18 16 Rate Blood Pressure 120/63 O2 Sat by Pulse 100 98 100 Oximetry 11/27/17 11/27/17 11/27/17 06:15 06:30 06:45 Temperature Pulse Rate 89 85 Respiratory 22 17 13 Rate Blood Pressure 84/43 74/40 O2 Sat by Pulse 97 96 97 Oximetry Physical Exam: GENERAL: The patient is well-developed well-nourished. HENT: Normocephalic. Atraumatic. Patient has moist mucous membranes. EYES: Extraocular motions are intact. Pupils equal reactive to light bilaterally. NECK: Supple. Trachea is midline. CHEST/LUNGS: Clear to auscultation. There is no respiratory distress noted. HEART/CARDIOVASCULAR: Regular. There is no tachycardia. There is no murmur. ABDOMEN: Abdomen is soft, nontender. Patient has normal bowel sounds. There is no abdominal distention. SKIN: Skin is warm and dry. NEURO: The patient is awake, alert, and oriented. The patient is cooperative. The patient has no focal neurologic deficits. The patient has normal speech. MUSCULOSKELETAL: There is no tenderness or deformity. There is no limitation range of motion. There is no evidence of acute injury. ED Course Vital Signs 11/27/17 11/27/17 11/27/17 03:15 06:01 06:06 Temperature 99.8 F H Pulse Rate 131 H 92 H Respiratory 16 18 16 Rate Blood Pressure 120/63 O2 Sat by Pulse 100 98 100 Oximetry 11/27/17 11/27/17 11/27/17 06:15 06:30 06:45 Temperature Pulse Rate 89 85 Respiratory 22 17 13 Rate Blood Pressure 84/43 74/40 O2 Sat by Pulse 97 96 97 Oximetry ED Medical Decision Making - Lab Data Result diagrams: 11/27/17 03:50 11/27/17 03:50 - EKG Data -: EKG Interpreted by Me EKG shows normal: sinus rhythm, axis, intervals, QRS complexes, ST-T waves Rate: normal - EKG Data When compared to previous EKG there are: no significant change Interpretation: unchanged when compared t (09/26/15) - Radiology Data Radiology results: image reviewed interpreted by me: Chest x-ray does not show any acute process. There are no pleural effusions, obvious pneumonia and there is no pneumothorax. - Medical Decision Making Patient has a urinary tract infection. There is no significant leukocytosis but she did have some hypotension that appeared to be responsive to IV fluid. With a low-grade fever and some hypotension and a source, the patient will be diagnosed with sepsis. She was already placed on Rocephin and blood and urine cultures were sent. She will be admitted to the hospital for further evaluation and treatment and was accepted for admission by the hospitalist service. - Differential Diagnosis sepsis, septic shock, UTI, pneumonia Critical Care Time: No Critical care attestation.: If time is entered above; I have spent that time in minutes in the direct care of this critically ill patient, excluding procedure time. ED Disposition Clinical Impression: Hypovolemia Sepsis Qualifiers: Sepsis type: sepsis due to unspecified organism Qualified Code(s): A41.9 - Sepsis, unspecified organism Hypotension Qualifiers: Hypotension type: unspecified hypotension type Qualified Code(s): I95.9 - Hypotension, unspecified UTI (urinary tract infection) Qualifiers: Urinary tract infection type: acute cystitis Hematuria presence: without hematuria Qualified Code(s): N30.00 - Acute cystitis without hematuria Disposition: OP ADMIT IP TO THIS HOSP Is pt being admited?: Yes Condition: Fair Time of Disposition: 07:30
--- NOTE | 2017-11-27 11:44 | History and Physical Report ---
History of Present Illness Date of examination: 11/27/17 Chief complaint: fever and abd pain History of present illness: This is a 42-year-old female presents to the emergency department with complaint of chills and fever since yesterday afternoon. She denies any cough, nausea, vomiting, vaginal bleeding or discharge. She has a past medical history of diabetes. No recent travel or sick contacts at home. She did not take anything for her symptoms prior to presentation. She did not check her temperature at home and presents with a low-grade fever of 99.8F here. Pt. reports suprabuic tenderness and dysuria. No cough cold sxs. Past History Past Medical History: diabetes Past Surgical History: , Other (salpingectomy) Social history: no significant social history Family history: no significant family history Medications and Allergies Allergies Allergy/AdvReac Type Severity Reaction Status Date / Time No Known Allergies Allergy Verified 11/16/13 13:35 Home Medications Medication Instructions Recorded Confirmed Last Taken Type Insulin NPH, Human [NovoLIN N] 30 unit SUB-Q BID 03/19/17 11/27/17 11/26/17 History Insulin Regular, Human [HumuLIN R] 28 units SUB-Q BID 03/19/17 11/27/17 History Ferrous Sulfate [Feosol 325 MG tab] 325 mg PO BID #30 tablet 03/21/17 11/27/17 11/26/17 Rx Acetaminophen/Codeine [Tylenol 1 tab PO Q6H PRN 4 Days #16 tab 11/03/17 Unknown Rx /Codeine # 3 tab] Ibuprofen [Motrin 600 MG tab] 600 mg PO Q8H PRN 5 Days #15 tablet 11/03/1711/2711/26/17 Rx Review of Systems All systems: negative Exam - Constitutional Vitals: Temp Pulse Resp BP Pulse Ox 99.8 F H 66 13 101/56 99 11/27/17 03:15 11/27/17 09:30 11/27/17 09:30 11/27/17 09:30 11/27/17 09:30 General appearance: Present: no acute distress, well-nourished - EENT Eyes: Present: PERRL ENT: hearing intact, clear oral mucosa - Neck Neck: Present: supple, normal ROM - Respiratory Respiratory effort: normal Respiratory: bilateral: CTA - Cardiovascular Heart Sounds: Present: S1 & S2. Absent: rub, click - Extremities Extremities: pulses symmetrical, No edema Peripheral Pulses: within normal limits - Abdominal General gastrointestinal: Present: soft, tender, non-distended, normal bowel sounds Localized gastrointestinal: tender: suprapubic (mild) Female genitourinary: Present: normal - Integumentary Integumentary: Present: clear, warm, dry - Musculoskeletal Musculoskeletal: gait normal, strength equal bilaterally - Psychiatric Psychiatric: appropriate mood/affect, intact judgment & insight - Neurologic Neurologic: CNII-XII intact, moves all extremities Results - Labs CBC & Chem 7: 11/27/17 03:50 11/27/17 03:50 Labs: Laboratory Last Values WBC 7.8 K/mm3 (4.5-11.0) 11/27/17 03:50 RBC 4.83 M/mm3 (3.65-5.03) 11/27/17 03:50 Hgb 12.3 gm/dl (10.1-14.3) 11/27/17 03:50 Hct 37.1 % (30.3-42.9) 11/27/17 03:50 MCV 77 fl (79-97) L 11/27/17 03:50 MCH 25 pg (28-32) L 11/27/17 03:50 MCHC 33 % (30-34) 11/27/17 03:50 RDW 14.6 % (13.2-15.2) 11/27/17 03:50 Plt Count 204 K/mm3 (140-440) 11/27/17 03:50 Lymph % (Auto) 8.7 % (13.4-35.0) L 11/27/17 03:50 [place] % (Auto) 6.1 % (0.0-7.3) 11/27/17 03:50 Eos % (Auto) 0.9 % (0.0-4.3) 11/27/17 03:50 Baso % (Auto) 0.2 % (0.0-1.8) 11/27/17 03:50 Lymph # 0.7 K/mm3 (1.2-5.4) L 11/27/17 03:50 [place] # 0.5 K/mm3 (0.0-0.8) 11/27/17 03:50 Eos # 0.1 K/mm3 (0.0-0.4) 11/27/17 03:50 Baso # 0.0 K/mm3 (0.0-0.1) 11/27/17 03:50 Seg Neutrophils % 84.1 % (40.0-70.0) H 11/27/17 03:50 Seg Neutrophils # 6.6 K/mm3 (1.8-7.7) 11/27/17 03:50 VBG pH 7.439 (7.320-7.420) H 11/27/17 03:50 Sodium 137 mmol/L (137-145) 11/27/17 03:50 Potassium 3.6 mmol/L (3.6-5.0) 11/27/17 03:50 Chloride 97.5 mmol/L (98-107) L 11/27/17 03:50 Carbon Dioxide 21 mmol/L (22-30) L 11/27/17 03:50 Anion Gap 22 mmol/L 11/27/17 03:50 BUN 9 mg/dL (7-17) 11/27/17 03:50 Creatinine 0.6 mg/dL (0.7-1.2) L 11/27/17 03:50 Estimated GFR > 60 ml/min 11/27/17 03:50 BUN/Creatinine Ratio 15 % 11/27/17 03:50 Glucose 207 mg/dL (65-100) H 11/27/17 03:50 POC Glucose 203 (70-105) H 11/27/17 03:37 Lactic Acid 2.00 mmol/L (0.7-2.0) 11/27/17 06:40 Calcium 8.4 mg/dL (8.4-10.2) 11/27/17 03:50 HCG, Qual Negative (Negative) 11/27/17 03:50 Urine Color Yellow (Yellow) 11/27/17 Unknown Urine Turbidity Clear (Clear) 11/27/17 Unknown Urine pH 5.0 (5.0-7.0) 11/27/17 Unknown Ur Specific [place] 1.009 (1.003-1.030) 11/27/17 Unknown Urine Protein <15 mg/dl mg/dL (Negative) 11/27/17 Unknown Urine Glucose (UA) Neg mg/dL (Negative) 11/27/17 Unknown Urine Ketones Neg mg/dL (Negative) 11/27/17 Unknown Urine Blood Sm (Negative) 11/27/17 Unknown Urine Nitrite Neg (Negative) 11/27/17 Unknown Urine Bilirubin Neg (Negative) 11/27/17 Unknown Urine Urobilinogen < 2.0 mg/dL (<2.0) 11/27/17 Unknown Ur Leukocyte Esterase Lg (Negative) 11/27/17 Unknown Urine WBC (Auto) 178.0 /HPF (0.0-6.0) H 11/27/17 Unknown Urine RBC (Auto) 8.0 /HPF (0.0-6.0) 11/27/17 Unknown U Epithel Cells (Auto) 1.0 /HPF (0-13.0) 11/27/17 Unknown Urine Bacteria (Auto) 1+ /HPF (Negative) 11/27/17 Unknown Urine Mucus Few /HPF 11/27/17 Unknown Influenza A (Rapid) Negative (Negative) 11/27/17 Unknown Influenza B (Rapid) Negative (Negative) 11/27/17 Unknown Assessment and Plan Assessment and plan: Sepsis with UTI. Pt. with elevated lactate and UA reveals UTI. Await blood and urine cx results. Trend lacate levels. Cont. IV abx Abdominal pain. Etiology likely related to cystitis. Check CT A/P DM type 2. Cont accuchecks and SSRI DVT prophylaxis. Lovenox
[2017-11-27] MEDS ORDERED: D50W (25GM) Syringe IV PRN (11:45)
[2017-11-27] MEDS ORDERED: ZOFRAN IV PRN ×2 (11:45→11:53)
[2017-11-27] MEDS ORDERED: MILK OF MAGNESIA PO PRN ×2 (11:45→11:53)
[2017-11-27] MEDS ORDERED: TYLENOL PO PRN ×2 (11:45→11:53)
[2017-11-27] MEDS ORDERED: DULCOLAX PR PRN ×2 (11:45→11:53)
[2017-11-27] MEDS ORDERED: NACL 0.9% 1000 ML 1,000 ML IV SCH (12:00)
[2017-11-27] MEDS ORDERED: ZOSYN/NS 4.5GM/100ML 4.5 GM/100 ML VIAL IV SCH (14:00)
[2017-11-27] MEDS: NACL 0.9% 1000 ML 1,000 ML IV SCH (14:09)
--- NOTE | 2017-11-27 16:24 | Cat Scan Report ---
FINAL REPORT PROCEDURE: CT ABDOMEN PELVIS WO CON TECHNIQUE: Computerized axial tomography of the abdomen and pelvis was performed without intravenous contrast. This study is performed without intravascular contrast material and its sensitivity for abdominal and pelvic pathology, including neoplasms, inflammation, abscess, free fluid, thrombosis, arterial dissection and infarction, is reduced compared with a contrast enhanced study. Oral contrast was not administered limiting evaluation of the bowel as well. HISTORY: abd pain, uti COMPARISON: None FINDINGS: Visualized lower thorax: Mild bibasilar subsegmental atelectasis. Liver: Diffuse fatty infiltration. Spleen: Normal size and attenuation. Gallbladder and biliary system: Normal. Pancreas: Normal. Adrenals: Normal. Kidneys: Normal. GI tract: No obstruction or gross focal abnormality. Normal appendix. Lymph nodes and mesentery: Normal. Vasculature: Normal. Bladder: Normal. Reproductive organs: Normal. Peritoneum: No free fluid. Musculoskeletal structures: No significant abnormality. Other: None. IMPRESSION: Diffuse fatty infiltration of the liver. Otherwise unremarkable examination.
[2017-11-27] MEDS ORDERED: LOVENOX SUB-Q SCH (22:00)
[2017-11-27] MEDS: MERREM/NS 500 MG/50 ML 500 MG/50 ML BAG IV SCH ×2 (23:37→23:39)
[2017-11-27] MEDS: LOVENOX SUB-Q SCH (23:40)
[2017-11-28] MEDS: MERREM/NS 500 MG/50 ML 500 MG/50 ML BAG IV SCH ×2 (06:09→12:22)
[2017-11-28] MEDS: NACL 0.9% 1000 ML 1,000 ML IV SCH (06:10)
[2017-11-28 07:14] LABS: Basophils % (Auto) 0.3 % (0.0-1.8); Hematocrit 35.3 % (30.3-42.9); Lymphocytes # (Auto) 1.1 K/mm3 (1.2-5.4); Lymphocytes % (Auto) 22.2 % (13.4-35.0); Mean Corpuscular HGB Conc 34 % (30-34); Mean Corpuscular Hemoglobin 26 pg (28-32); Mean Corpuscular Volume 78 fl (79-97); Monocytes # (Auto) 0.4 K/mm3 (0.0-0.8); Platelet Count 154 K/mm3 (140-440); Red Blood Count 4.55 M/mm3 (3.65-5.03); Red Cell Distribution Width 14.6 % (13.2-15.2)
[2017-11-28 07:36] LABS: BUN/Creatinine Ratio 10; Blood Urea Nitrogen 4 mg/dL (7-17); Calcium 7.4 mg/dL (8.4-10.2); Hemolysis Index 3
[2017-11-28] MEDS: LEVAQUIN 750MG/150ML 750 MG/150 ML BAG IV SCH (10:16)
--- NOTE | 2017-11-28 10:29 | Progress Note ---
Assessment and Plan Assessment and plan: Sepsis with UTI. Pt. with elevated lactate and UA reveals UTI. Urine cx reveals GNR. Blood cx reveals GPC in clusters in only one bottle--likely a contaminant. Cont to Trend lacate levels. Cont. IV abx Abdominal pain. Etiology likely related to cystitis. CT A/P negative. DM type 2. Cont accuchecks and SSRI hypokalemia. replete potassium DVT prophylaxis. Lovenox History Interval history: Nurse reports GPC blood cx. Pt c/o mild suprapubic tenderness Hospitalist Physical - Constitutional Vitals: Temp Pulse Resp BP Pulse Ox 99.7 F H 86 20 97/54 98 11/28/17 07:53 11/28/17 07:53 11/28/17 07:53 11/28/17 07:53 11/28/17 07:53 General appearance: Present: no acute distress, well-nourished - EENT Eyes: Present: PERRL, EOM intact ENT: hearing intact, clear oral mucosa, dentition normal - Neck Neck: Present: supple, normal ROM - Respiratory Respiratory effort: normal Respiratory: bilateral: CTA - Cardiovascular Rhythm: regular Heart Sounds: Present: S1 & S2. Absent: gallop, rub - Extremities Extremities: no ischemia, No edema, Full ROM - Abdominal General gastrointestinal: soft, tender, non-distended, normal bowel sounds Localized gastrointestinal: tender: suprapubic (mild) - Integumentary Integumentary: Present: clear, warm, dry - Neurologic Neurologic: CNII-XII intact, moves all extremities Results - Labs CBC & Chem 7: 11/28/17 05:51 11/28/17 05:51 Labs: Laboratory Last Values WBC 5.0 K/mm3 (4.5-11.0) 11/28/17 05:51 RBC 4.55 M/mm3 (3.65-5.03) 11/28/17 05:51 Hgb 12.0 gm/dl (10.1-14.3) 11/28/17 05:51 Hct 35.3 % (30.3-42.9) 11/28/17 05:51 MCV 78 fl (79-97) L 11/28/17 05:51 MCH 26 pg (28-32) L 11/28/17 05:51 MCHC 34 % (30-34) 11/28/17 05:51 RDW 14.6 % (13.2-15.2) 11/28/17 05:51 Plt Count 154 K/mm3 (140-440) 11/28/17 05:51 Lymph % (Auto) 22.2 % (13.4-35.0) 11/28/17 05:51 [place] % (Auto) 8.0 % (0.0-7.3) H 11/28/17 05:51 Eos % (Auto) 1.0 % (0.0-4.3) 11/28/17 05:51 Baso % (Auto) 0.3 % (0.0-1.8) 11/28/17 05:51 Lymph # 1.1 K/mm3 (1.2-5.4) L 11/28/17 05:51 [place] # 0.4 K/mm3 (0.0-0.8) 11/28/17 05:51 Eos # 0.0 K/mm3 (0.0-0.4) 11/28/17 05:51 Baso # 0.0 K/mm3 (0.0-0.1) 11/28/17 05:51 Seg Neutrophils % 68.5 % (40.0-70.0) 11/28/17 05:51 Seg Neutrophils # 3.4 K/mm3 (1.8-7.7) 11/28/17 05:51 VBG pH 7.439 (7.320-7.420) H 11/27/17 03:50 Sodium 142 mmol/L (137-145) 11/28/17 05:51 Potassium 3.2 mmol/L (3.6-5.0) L 11/28/17 05:51 Chloride 104.3 mmol/L (98-107) 11/28/17 05:51 Carbon Dioxide 22 mmol/L (22-30) 11/28/17 05:51 Anion Gap 19 mmol/L 11/28/17 05:51 BUN 4 mg/dL (7-17) L 11/28/17 05:51 Creatinine 0.4 mg/dL (0.7-1.2) L 11/28/17 05:51 Estimated GFR > 60 ml/min 11/28/17 05:51 BUN/Creatinine Ratio 10 % 11/28/17 05:51 Glucose 179 mg/dL (65-100) H 11/28/17 05:51 POC Glucose 182 (70-105) H 11/28/17 06:37 Lactic Acid 2.00 mmol/L (0.7-2.0) 11/27/17 06:40 Calcium 7.4 mg/dL (8.4-10.2) L 11/28/17 05:51 HCG, Qual Negative (Negative) 11/27/17 03:50 Urine Color Yellow (Yellow) 11/27/17 Unknown Urine Turbidity Clear (Clear) 11/27/17 Unknown Urine pH 5.0 (5.0-7.0) 11/27/17 Unknown Ur Specific [place] 1.009 (1.003-1.030) 11/27/17 Unknown Urine Protein <15 mg/dl mg/dL (Negative) 11/27/17 Unknown Urine Glucose (UA) Neg mg/dL (Negative) 11/27/17 Unknown Urine Ketones Neg mg/dL (Negative) 11/27/17 Unknown Urine Blood Sm (Negative) 11/27/17 Unknown Urine Nitrite Neg (Negative) 11/27/17 Unknown Urine Bilirubin Neg (Negative) 11/27/17 Unknown Urine Urobilinogen < 2.0 mg/dL (<2.0) 11/27/17 Unknown Ur Leukocyte Esterase Lg (Negative) 11/27/17 Unknown Urine WBC (Auto) 178.0 /HPF (0.0-6.0) H 11/27/17 Unknown Urine RBC (Auto) 8.0 /HPF (0.0-6.0) 11/27/17 Unknown U Epithel Cells (Auto) 1.0 /HPF (0-13.0) 11/27/17 Unknown Urine Bacteria (Auto) 1+ /HPF (Negative) 11/27/17 Unknown Urine Mucus Few /HPF 11/27/17 Unknown Influenza A (Rapid) Negative (Negative) 11/27/17 Unknown Influenza B (Rapid) Negative (Negative) 11/27/17 Unknown Blood Type O POSITIVE 11/27/17 11:55 Antibody Screen Negative 11/27/17 11:55
[2017-11-28] MEDS ORDERED: K-DUR PO ONE (11:00)
[2017-11-28] MEDS: LOVENOX SUB-Q SCH (22:47)
[2017-11-29 05:36] LABS: Basophils % (Auto) 0.3 % (0.0-1.8); Eosinophils # (Auto) 0.1 K/mm3 (0.0-0.4); Eosinophils % (Auto) 1.8 % (0.0-4.3); Hematocrit 36.3 % (30.3-42.9); Hemoglobin 12.3 gm/dl (10.1-14.3); Lymphocytes # (Auto) 1.6 K/mm3 (1.2-5.4); Lymphocytes % (Auto) 40.9 % (13.4-35.0); Mean Corpuscular HGB Conc 34 % (30-34); Mean Corpuscular Hemoglobin 26 pg (28-32); Mean Corpuscular Volume 77 fl (79-97); Monocytes # (Auto) 0.4 K/mm3 (0.0-0.8); Monocytes % (Auto) 10.9 % (0.0-7.3); Platelet Count 168 K/mm3 (140-440); Red Blood Count 4.71 M/mm3 (3.65-5.03); Red Cell Distribution Width 14.4 % (13.2-15.2)
[2017-11-29 05:45] LABS: BUN/Creatinine Ratio 10; Blood Urea Nitrogen 5 mg/dL (7-17); Hemolysis Index 1
[2017-11-29] MEDS: LEVAQUIN 750MG/150ML 750 MG/150 ML BAG IV SCH (09:31)
--- NOTE | 2017-11-29 10:26 | Progress Note ---
Assessment and Plan Assessment and plan: Sepsis with UTI. Pt. with elevated lactate and UA reveals UTI. Urine cx reveals GNR. Blood cx reveals GPC in clusters in only one bottle--likely a contaminant. Cont to Trend lacate levels. Cont. IV abx. ID consultation Abdominal pain. Etiology likely related to cystitis. CT A/P negative. DM type 2. Cont accuchecks and SSRI hypokalemia. replete potassium DVT prophylaxis. Lovenox Disposition. Anticipate discharge later today or in a.m. depending on ID evaluation. History Interval history: Nurse reports GPC blood cx. Pt c/o mild suprapubic tenderness Hospitalist Physical - Constitutional Vitals: Temp Pulse Resp BP Pulse Ox 98.3 F 64 19 97/53 95 11/29/17 07:26 11/29/17 07:26 11/29/17 07:26 11/29/17 07:26 11/29/17 08:54 General appearance: Present: no acute distress, well-nourished - EENT Eyes: Present: PERRL, EOM intact ENT: hearing intact, clear oral mucosa, dentition normal - Neck Neck: Present: supple, normal ROM - Respiratory Respiratory effort: normal Respiratory: bilateral: CTA - Cardiovascular Rhythm: regular Heart Sounds: Present: S1 & S2. Absent: gallop, rub - Extremities Extremities: no ischemia, No edema, Full ROM - Abdominal General gastrointestinal: soft, non-tender, non-distended, normal bowel sounds - Integumentary Integumentary: Present: clear, warm, dry - Neurologic Neurologic: CNII-XII intact, moves all extremities Results - Labs CBC & Chem 7: 11/29/17 05:02 11/29/17 05:02 Labs: Laboratory Last Values WBC 4.0 K/mm3 (4.5-11.0) L 11/29/17 05:02 RBC 4.71 M/mm3 (3.65-5.03) 11/29/17 05:02 Hgb 12.3 gm/dl (10.1-14.3) 11/29/17 05:02 Hct 36.3 % (30.3-42.9) 11/29/17 05:02 MCV 77 fl (79-97) L 11/29/17 05:02 MCH 26 pg (28-32) L 11/29/17 05:02 MCHC 34 % (30-34) 11/29/17 05:02 RDW 14.4 % (13.2-15.2) 11/29/17 05:02 Plt Count 168 K/mm3 (140-440) 11/29/17 05:02 Lymph % (Auto) 40.9 % (13.4-35.0) H 11/29/17 05:02 [place] % (Auto) 10.9 % (0.0-7.3) H 11/29/17 05:02 Eos % (Auto) 1.8 % (0.0-4.3) 11/29/17 05:02 Baso % (Auto) 0.3 % (0.0-1.8) 11/29/17 05:02 Lymph # 1.6 K/mm3 (1.2-5.4) 11/29/17 05:02 [place] # 0.4 K/mm3 (0.0-0.8) 11/29/17 05:02 Eos # 0.1 K/mm3 (0.0-0.4) 11/29/17 05:02 Baso # 0.0 K/mm3 (0.0-0.1) 11/29/17 05:02 Seg Neutrophils % 46.1 % (40.0-70.0) 11/29/17 05:02 Seg Neutrophils # 1.8 K/mm3 (1.8-7.7) 11/29/17 05:02 VBG pH 7.439 (7.320-7.420) H 11/27/17 03:50 Sodium 140 mmol/L (137-145) 11/29/17 05:02 Potassium 3.7 mmol/L (3.6-5.0) 11/29/17 05:02 Chloride 104.4 mmol/L (98-107) 11/29/17 05:02 Carbon Dioxide 23 mmol/L (22-30) 11/29/17 05:02 Anion Gap 16 mmol/L 11/29/17 05:02 BUN 5 mg/dL (7-17) L 11/29/17 05:02 Creatinine 0.5 mg/dL (0.7-1.2) L 11/29/17 05:02 Estimated GFR > 60 ml/min 11/29/17 05:02 BUN/Creatinine Ratio 10 % 11/29/17 05:02 Glucose 167 mg/dL (65-100) H 11/29/17 05:02 POC Glucose 166 (70-105) H 11/29/17 06:01 Lactic Acid 2.00 mmol/L (0.7-2.0) 11/27/17 06:40 Calcium 8.0 mg/dL (8.4-10.2) L 11/29/17 05:02 HCG, Qual Negative (Negative) 11/27/17 03:50 Urine Color Yellow (Yellow) 11/27/17 Unknown Urine Turbidity Clear (Clear) 11/27/17 Unknown Urine pH 5.0 (5.0-7.0) 11/27/17 Unknown Ur Specific [place] 1.009 (1.003-1.030) 11/27/17 Unknown Urine Protein <15 mg/dl mg/dL (Negative) 11/27/17 Unknown Urine Glucose (UA) Neg mg/dL (Negative) 11/27/17 Unknown Urine Ketones Neg mg/dL (Negative) 11/27/17 Unknown Urine Blood Sm (Negative) 11/27/17 Unknown Urine Nitrite Neg (Negative) 11/27/17 Unknown Urine Bilirubin Neg (Negative) 11/27/17 Unknown Urine Urobilinogen < 2.0 mg/dL (<2.0) 11/27/17 Unknown Ur Leukocyte Esterase Lg (Negative) 11/27/17 Unknown Urine WBC (Auto) 178.0 /HPF (0.0-6.0) H 11/27/17 Unknown Urine RBC (Auto) 8.0 /HPF (0.0-6.0) 11/27/17 Unknown U Epithel Cells (Auto) 1.0 /HPF (0-13.0) 11/27/17 Unknown Urine Bacteria (Auto) 1+ /HPF (Negative) 11/27/17 Unknown Urine Mucus Few /HPF 11/27/17 Unknown Influenza A (Rapid) Negative (Negative) 11/27/17 Unknown Influenza B (Rapid) Negative (Negative) 11/27/17 Unknown Blood Type O POSITIVE 11/27/17 11:55 Antibody Screen Negative 11/27/17 11:55
[2017-11-29] MEDS: NACL 0.9% 1000 ML 1,000 ML IV SCH (13:57)
--- NOTE | 2017-11-29 15:38 | Consultation ---
History of Present Illness - Reason for Consult Consult date: 11/29/17 uti Requesting physician: PANCHITO CHILDRESS - History of Present Illness 42 years old female with previous UTI admitted on 11/28/17 due to 1 day-history of high fever, chills, rigors and RLQ abdominal pain. Pain was sharp, 9/10, no radiation and resolved by itself. Denies any dysuria, hematuria, frequency or flank pain. Patient denies any previous history of kidney stones. He denies any recent runny nose, cough, chest congestion, sick contacts. No recent travel or sick contacts at home. In the emergency room, initial temperature was 99.8, heart rate 131, respirations 16, O2 sat 100%, blood pressure 120/63, blood pressure then went down to 84/43. White count 7.8. Hemoglobin 12.3. Platelets 204. Creatinine 0.6. Lactic acid 3.1. Glucose 207. UA shows 178 white blood cells and large leukocyte esterase. Chest x-ray was negative. CT of the abdomen showed diffuse fatty fever. Normal kidneys. 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 Urine cultures: 11/27 E coli pansensitive Respiratory cultures: Wound cultures: Stool cultures: Other: Current Antimicrobials: Levaquin 11/27 Previous Antimicrobials: Past History Past Medical History: diabetes Past Surgical History: , Other (salpingectomy) Social history: no significant social history Family history: no significant family history Medications and Allergies Allergies Allergy/AdvReac Type Severity Reaction Status Date / Time piperacillin [From Zosyn] AdvReac Vomiting Verified 11/27/17 19:19 tazobactam [From Zosyn] AdvReac Vomiting Verified 11/27/17 19:19 Home Medications Medication Instructions Recorded Confirmed Last Taken Type Insulin NPH, Human [NovoLIN N] 30 unit SUB-Q BID 03/19/17 11/27/17 11/26/17 History Insulin Regular, Human [HumuLIN R] 28 units SUB-Q BID 03/19/17 11/27/17 History Ferrous Sulfate [Feosol 325 MG tab] 325 mg PO BID #30 tablet 03/21/17 11/27/17 11/26/17 Rx Acetaminophen/Codeine [Tylenol 1 tab PO Q6H PRN 4 Days #16 tab 11/03/17 Unknown Rx /Codeine # 3 tab] Ibuprofen [Motrin 600 MG tab] 600 mg PO Q8H PRN 5 Days #15 tablet 11/03/1711/2711/26/17 Rx Active Meds: Active Medications Acetaminophen (Tylenol) 650 mg PO Q4H PRN PRN Reason: Pain MILD(1-3)/Fever >100.5/SHOOK Bisacodyl (Dulcolax) 10 mg FL QDAY PRN PRN Reason: Constipation unrelieved by MOM Dextrose (D50w (25gm) Syringe) 50 ml IV PRN PRN PRN Reason: Hypoglycemia Enoxaparin Sodium (Lovenox) 40 mg SUB-Q QHS PHUONG Last Admin: 11/28/17 22:47 Dose: 40 mg Sodium Chloride (Nacl 0.9% 1000 Ml) 1,000 mls @ 75 mls/hr IV DIRECT PHUONG Last Admin: 11/29/17 13:57 Dose: 75 mls/hr Insulin Human Regular (Novolin R) 0 units SUB-Q ACHS PHUONG PRN Reason: Protocol Last Admin: 11/29/17 11:53 Dose: 4 units Levofloxacin (Levaquin) 750 mg PO Q24H PHUONG Magnesium Hydroxide (Milk Of Magnesia) 30 ml PO Q4H PRN PRN Reason: Constipation Ondansetron HCl (Zofran) 4 mg IV Q8H PRN PRN Reason: N/V unrelieved by Reglan Review of Systems All systems: negative (as per HPI rest neg) Physical Examination - Physical Exam Narrative exam: General appearance: Alert in NAD, conversant Eyes: anicteric sclerae, moist conjunctivae; no lid-lag; PERRLA HENT: Atraumatic; oropharynx clear. Neck: Trachea midline; supple, no thyromegaly or lymphadenopathy Lungs: CTA, with normal respiratory effort and no intercostal retractions CV: RRR, +murmur Abdomen: Soft, non-tender Extremities: No peripheral edema or extremity lymphadenopathy Skin: Normal temperature, turgor and texture; no rash, ulcers or subcutaneous nodules Psych: Appropriate affect, alert and oriented to person, place and time. Neuro: alert and oriented x 3. Moving all extermities Lines: No CVL / PICC - Constitutional Vitals: Vital Signs Temp Pulse Resp BP Pulse Ox 98.3 F 64 19 97/53 95 11/29/17 07:26 11/29/17 07:26 11/29/17 07:26 11/29/17 07:26 11/29/17 08:54 Temperature -Last 24 Hours Temperature 98.3 F Temperature 98.8 F Temperature 99.0 F Temperature 99.4 F Temperature 99.7 F Results - Labs CBC & Chem 7: 11/29/17 05:02 11/29/17 05:02 Labs: Abnormal lab results 11/28/17 11/28/17 11/29/17 Range/Units 16:45 21:49 05:02 WBC 4.0 L (4.5-11.0) K/mm3 MCV 77 L (79-97) fl MCH 26 L (28-32) pg Lymph % (Auto) 40.9 H (13.4-35.0) % [place] % (Auto) 10.9 H (0.0-7.3) % BUN (7-17) mg/dL Creatinine (0.7-1.2) mg/dL Glucose (65-100) mg/dL POC Glucose 198 H 265 H (70-105) Calcium (8.4-10.2) mg/dL 11/29/17 11/29/17 11/29/17 Range/Units 05:02 06:01 11:30 WBC (4.5-11.0) K/mm3 MCV (79-97) fl MCH (28-32) pg Lymph % (Auto) (13.4-35.0) % [place] % (Auto) (0.0-7.3) % BUN 5 L (7-17) mg/dL Creatinine 0.5 L (0.7-1.2) mg/dL Glucose 167 H (65-100) mg/dL POC Glucose 166 H 263 H (70-105) Calcium 8.0 L (8.4-10.2) mg/dL 11/29/17 Range/Units 11:47 WBC (4.5-11.0) K/mm3 MCV (79-97) fl MCH (28-32) pg Lymph % (Auto) (13.4-35.0) % [place] % (Auto) (0.0-7.3) % BUN (7-17) mg/dL Creatinine (0.7-1.2) mg/dL Glucose (65-100) mg/dL POC Glucose 241 H (70-105) Calcium (8.4-10.2) mg/dL Assessment and Plan Assessment: 1) Severe sepsis: Present on admission, manifested by fever, tachycardia, hypotension, increased lactate. Etiology most likely UTI. 2) UTI: Secondary to Escherichia coli. Non-complicated. No history of kidney stones, no hydronephrosis on CT. Escherichia coli is pansensitive. 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
[2017-11-29] MEDS: LOVENOX SUB-Q SCH (22:47)
[2017-11-30] MEDS: NACL 0.9% 1000 ML 1,000 ML IV SCH (02:50)
--- NOTE | 2017-11-30 09:20 | Discharge Summary ---
Providers - Providers Date of Admission: 11/27/17 11:53 Date of discharge: 11/30/17 Attending physician: PANCHITO CHILDRESS 11/29/17 08:28 Consult to Physician [CONS] Routine Consulting Provider: [address] Reason For Exam: uti Place consult to:: Notified:: Phone number called:: [phone] Was contact made?: Yes If yes, spoke with:: dr. jefferson Time called:: 11:14 Primary care physician: TYALOR RYDER Hospitalization Reason for admission: uti Condition: Fair Hospital course: 42 years old female with previous UTI admitted on 11/28/17 due to 1 day-history of high fever, chills, rigors and suprapubic abdominal pain. Pain was sharp, 9/ 10, no radiation and resolved by itself. Patient reported mild dysuria but no hematuria, frequency or flank pain. Patient denies any previous history of kidney stones. She denies any recent runny nose, cough, chest congestion, sick contacts. No recent travel or sick contacts at home. In the emergency room, initial temperature was 99.8, heart rate 131, respirations 16, O2 sat 100%, blood pressure 120/63, blood pressure then went down to 84/43. White count 7.8. Hemoglobin 12.3. Platelets 204. Creatinine 0.6. Lactic acid 3.1. Glucose 207. UA shows 178 white blood cells and large leukocyte esterase. Chest x-ray was negative. CT of the abdomen showed diffuse fatty fever. Normal kidneys. The patient was admitted with diagnosis of sepsis with UTI. Urine culture revealed Escherichia coli that was pansensitive and was treated with Levaquin. Blood cultures were found be negative. Patient was seen by ID consultation. Patient is felt to have received maximal hospital benefit. Dedicated discharge 32 minutes. Disposition: - TO HOME OR SELFCARE Time spent for discharge: 32 - Discharge Diagnoses (1) Sepsis Status: Acute Qualifiers: Sepsis type: sepsis due to unspecified organism Qualified Code(s): A41.9 - Sepsis, unspecified organism (2) UTI (urinary tract infection) Status: Acute Qualifiers: Urinary tract infection type: acute cystitis Hematuria presence: without hematuria Qualified Code(s): N30.00 - Acute cystitis without hematuria Core Measure Documentation - Palliative Care Palliative Care/ Comfort Measures: Not Applicable - Core Measures Any of the following diagnoses?: none Exam - Constitutional Vitals: Temp Pulse Resp BP Pulse Ox 98.2 F 57 L 18 99/49 98 11/30/17 07:47 11/30/17 07:47 11/30/17 07:47 11/30/17 07:47 11/30/17 07:47 General appearance: Present: no acute distress, well-nourished - EENT Eyes: Present: PERRL ENT: hearing intact, clear oral mucosa - Neck Neck: Present: supple, normal ROM - Respiratory Respiratory effort: normal Respiratory: bilateral: CTA - Cardiovascular Heart Sounds: Present: S1 & S2. Absent: rub, click - Extremities Extremities: pulses symmetrical, No edema Peripheral Pulses: within normal limits - Abdominal General gastrointestinal: Present: soft, non-tender, non-distended, normal bowel sounds Female genitourinary: Present: normal - Integumentary Integumentary: Present: clear, warm, dry - Musculoskeletal Musculoskeletal: gait normal, strength equal bilaterally - Psychiatric Psychiatric: appropriate mood/affect, intact judgment & insight - Neurologic Neurologic: CNII-XII intact, moves all extremities Plan Activity: no restrictions Weight Bearing Status: Full Weight Bearing Diet: diabetic Follow up with: TAYLOR RYDER MD [Primary Care Provider] - 3-5 Days Prescriptions: Levofloxacin [Levaquin TAB] 750 mg PO Q24H #10 tablet
[2017-11-30] MEDS ORDERED: LEVAQUIN PO SCH (10:00)
[2017-11-30 11:43] VITALS: BP 102/61
== END 2017-11-30 13:30 | disposition home or self-care (01) | DRG 872 ==
LOC: ED 03:06 → 3A 11:53
PROVIDERS: ADMIT Hospitalist; ATTEND Hospitalist
DX: A41.9 Sepsis, unspecified organism (principal); N30.00 Acute cystitis without hematuria; R65.20 Severe sepsis without septic shock; E11.9 Type 2 diabetes mellitus without complications; E86.1 Hypovolemia; E87.6 Hypokalemia; B96.20 Unspecified Escherichia coli [E. coli] as the cause of diseases classified elsewhere; Z79.4 Long term (current) use of insulin
CPT/HCPCS: 36415; 71046; 74176; 80048; 81001; 82140; 82805; 82962; 84703; 85025; 86850; 86900; 86901; 87040; 87076; 87086; 87186; 87400; 93005; 93010; 96361; 96374; 96375; J0696; J1650; J1815; J1885; J1956; J2185; J2405; J2543; J7030